=== PATIENT | female | born 1995 | race Two or more races ===

== ENCOUNTER 2023-12-19 18:07 | Emergency (ER) | payer OTHER ==
[~2023-12-19] VITALS: Ht 160 cm; Wt 66.7 kg
[2023-12-19] MEDS ORDERED: KETOROLAC TROMETHAMINE 60 MG VIAL IM STA (20:06)
[2023-12-19] MEDS ORDERED: METOCLOPRAMIDE HCL 5 MG/ML VIAL IM STA (20:06)
== END 2023-12-19 20:24 | disposition home or self-care (01) ==
LOC: ER 18:07 → EDBD 19:03 → ER 20:24
DX: G44.209 Tension-type headache, unspecified, not intractable (principal); R12 Heartburn

== ENCOUNTER 2025-05-25 13:48 | Emergency (ER) | payer OTHER ==
[~2025-05-25] VITALS: Ht 160 cm; Wt 68.9 kg
[2025-05-25] MEDS ORDERED: SYNTHROID112 MCG PO (14:01)
[2025-05-25 17:28] LABS: BASO % 0.4 % (0.1-1.2); EOS # 0.03 (0.04-0.54); EOS % 0.4 % (0.7-7.0); LYMPH # 1.69 (1.18-3.74); LYMPH % 19.8 % (19.3-53.1); MEAN PLATELET VOLUME 9.90 fl (9.4-12.4); MONO # 0.31 (0.24-0.82); MONO % 3.6 % (4.7-12.5); NEUT # 6.46 (1.56-6.13); NEUT % 75.6 % (34.0-71.1); RED CELL DISTRIBUTION WIDTH 11.9 % (11.6-14.4)
[2025-05-25 17:52] LABS: ALT/SGPT 21.0 U/L (12-78); AST/SGOT 16.0 U/L (15-37); BILIRUBIN TOTAL 0.6 mg/dL (0.3-1.2); BUN CREA RATIO 9.0 (7.0-25.0); CREATININE SERUM 1.03 mg/dL (0.55-1.02); GFR 64.28; GLOBULINA 4.1 G/DL (2.4-3.5); GLUCOSE FASTING 107.0 mg/dL (65-100); OSMOLALITY SERUM 282.0 MOSM/KG (275-295)
[2025-05-25 18:20] LABS: COVID-19 AG NEGATIVE (NEGATIVE)
[2025-05-25] MEDS ORDERED: 0.9 % SODIUM CHLORIDE 1,000 ML IV ONE (19:30)
== END 2025-05-25 19:51 | disposition home or self-care (01) ==
LOC: ER 14:20
PROVIDERS: General Practice
DX: R42 Dizziness and giddiness (principal); E03.8 Other specified hypothyroidism; Z20.822 Contact with and (suspected) exposure to COVID-19